=== PATIENT | male | born 1985 | race Hispanic/Latino ===

== ENCOUNTER 2017-10-25 09:56 | Emergency (ER) | payer SELFPAY ==
[2017-10-25] MEDS ORDERED: IBUPROFEN 600 MG TABLET ONE (10:05)
[2017-10-25] MEDS ORDERED: ACETAMINOPHEN 325 MG TAB ONE (10:10)
[2017-10-25] MEDS ORDERED: MAG HYDROX/AL HYDROX/SIMETH ES 30 ML SUSP UDCUP ONE (10:19)
[2017-10-25] MEDS ORDERED: KETOROLAC TROMETHAMINE 30MG/ML ONE (10:19)
[2017-10-25] MEDS ORDERED: LIDOCAINE HCL 2% VISCOUS 15 ML UDCUP ONE (10:19)
[2017-10-25] MEDS ORDERED: PENICILLIN G BENZATHINE LA 1.2 MILUNITS/2 ML SYG ONE (10:21)
[2017-10-25] MEDS ORDERED: DEXAMETHASONE SOD PHOSPHATE 10MG/ML 1ML VIAL ONE (10:22)
== END 2017-10-25 11:14 | disposition home or self-care (01) ==
LOC: EDH 09:56
DX: J02.9 Acute pharyngitis, unspecified (principal); R50.9 Fever, unspecified
CPT/HCPCS: 87804 ×2; 96372 ×2; 99284; J0561; J1100; J1885

== ENCOUNTER 2018-06-17 11:50 | Emergency (ER) | payer OTHER, SELFPAY | END 2018-06-17 12:14 | disposition left against medical advice (07) | LOC: EDH 11:50 | DX: Z53.21 Procedure and treatment not carried out due to patient leaving prior to being seen by health care provider (principal) ==

== ENCOUNTER 2020-03-28 17:01 | Emergency (ER) | payer OTHER ==
[2020-03-28] MEDS ORDERED: KETOROLAC TROMETHAMINE 30MG/ML ONE (17:22)
== END 2020-03-28 19:38 | disposition home or self-care (01) ==
LOC: EDH 17:01
DX: S62.624A Displaced fracture of middle phalanx of right ring finger, initial encounter for closed fracture (principal); Z72.0 Tobacco use; W18.39XA Other fall on same level, initial encounter; Y93.89 Activity, other specified; Y92.89 Other specified places as the place of occurrence of the external cause; Y99.8 Other external cause status
CPT/HCPCS: 29130; 73130; 96372; 99283; J1885

== ENCOUNTER 2025-04-05 19:55 | Emergency (ER) | payer SELFPAY ==
[~2025-04-05] VITALS: Ht 177.8 cm; Wt 61.2 kg
--- NOTE | 2025-04-05 20:17 | ERN ---
ED Note History of Present Illness Stated Complaint: FALL, LEFT ELBOW PAIN Chief Complaint: Elbow Problem Time Seen by MD: 20:00 Time Seen by Midlevel: 20:00 Dictation: The patient is a 39-year-old male with no past medical history who presents to the emergency department with complaints of left elbow pain after he had a fall off his skateboard about a week and a half ago. Patient reports pain is radiating down his arm and into his shoulder. Denies any other injuries from the fall. Allergies: Coded Allergies: No Known Allergies (Unverified Allergy, Unknown, 04/05/25) Past Medical History Past Medical History: No Pertinent History Surgical History: None RN Note Reviewed/Agreed w/PFSH: Yes Review of System Dictation Constitutional: Negative for fever,chills, and weight loss Eyes: Negative for injury, pain,redness, and discharge ENT: Negative for injury,pain or swelling Cardiovascular: Negative for chest pain, palpitations, and edema Respiratory: Negative for shortness of breath, cough, and wheezing, Abdomen/GI: Negative for abdominal pain, nausea, vomiting, diarrhea, and constipation Back: Negative for injury and pain : Negative for injury, bleeding and discharge MS/Extremity: Positive for left shoulder pain Skin: Negative for rash, and discoloration Neuro: Negative for headache, weakness, numbness, tingling, and seizure Psych: Negative for suicide ideation, homicidal ideation, and hallucinations Initial Vital Sign VS Vital Signs Date Time Temp Pulse Resp B/P (MAP) Pulse Ox O2 Delivery O2 Flow Rate FiO2 04/05/25 19:57 98.1 102 18 143/86 98 Room Air 04/05/25 21:55 0 21 Physical Exam Dictation Vital Signs reviewed General Appearance: Alert, oriented x 3, no acute distress, well developed, nourished. Head and Face: non-traumatic. Eyes: PERRL, pink conjunctivas, eyelid no trauma, anterior chamber with arcus senilis. Ears: Pinnas intact and no signs of trauma or erythema ear canals clear and no discharge TM no erythema Nose: No discharge, no bleeding. Oropharynx: Mouth normal, tongue pink. pharynx clear,no erythema, tonsils no exudates, no abscesses noted, mucous membrane moist Neck: Supple, non-tender, no thyromegaly, no masses, no JVD, no bruits Breast:Deferred Chest:No tenderness, no crepitus, no paradoxical movement, no retractions Lungs:Clear, well-ventilated, symmetric, no rales, no wheezing, no rhonchi, no stridor, good breath sounds bilaterally Heart: Regular rate, regular rhythm, no murmur, no gallops Vascular: no peripheral edema, radial pulse 3 + Abdomen: Soft, positive bowel sounds, nondistended, no guarding, nontender, no rebound, no masses no hepatomegaly, no splenomegaly, no Johnson's sign, no hernias. Rectal: Deferred Genital: Deferred Neurological: Normal speech, motor function intact, sensory function intact Musculoskeletal: Neck nontender, full range of motion, back nontender, full range of motion, Extremities: nontender, full range of motion , tenderness to left elbow, full range of motion Skin: Color pink, dry, no turgor, no rash, no lacerations, no abrasions, no contusions. Lymphatic: Deferred Results (Laboratory/Radiology) Laboratory/Radiology REASON: pain ORDERING PHYSICIAN: KESHAV MIN CENTRIFUGAL SEPARATOR PROCEDURE: ELB3VW LT - ELBOW COMP 3+VWS LT EXAM: CR left elbow, 3 View. CLINICAL HISTORY: pain COMPARISON: None provided. FINDINGS: BONES: No acute fracture or aggressive appearing osseous lesion. JOINTS: The joint spaces appear within normal limits. No dislocation. No radiographic evidence of a joint effusion. SOFT TISSUES: The soft tissues are unremarkable. IMPRESSION: No acute osseous abnormality. /[place] Labs Reviewed?: Yes ED Course ED Course Orders Procedure Category Date Status Time Elbow Comp 3+Vws Lt RAD 04/05/25 Resulted 20:14 Ibuprofen 600 Mg PHA 04/05/25 Complete Tablet (Motrin) 20:30 Apply Xochilt Wrap (Er) CPOE 04/05/25 Transmitted 21:32 Sling JEWELS 04/05/25 In Process 21:32 Current Medications Medications (Trade) Dose Ordered Sig/Douglas Route PRN Reason Start Time Stop Time Status Last Admin Dose Admin Ibuprofen (moTRIN) 600 mg ONCE ONCE PO 04/05/25 20:30 04/05/25 20:31 DC 04/05/25 20:51 Vital Signs Date Time Temp Pulse Resp B/P (MAP) Pulse Ox O2 Delivery O2 Flow Rate FiO2 04/05/25 21:55 98.2 72 18 138/73 99 Room Air* 0 21 04/05/25 19:57 98.1 102 18 143/86 98 Room Air Medical Decision Making MDM The patient is a 39-year-old male with no past medical history who presents to the emergency department with complaints of left elbow pain after he had a fall off his skateboard about a week and a half ago. Patient reports pain is radiating down his arm and into his shoulder. Denies any other injuries from the fall. X-ray Showed no fractures. Patient is neurovascularly intact. On physical exam patient is in no acute distress, nontoxic appearance. Patient will be discharged to follow up with PCP. Differential diagnosis: Elbow dislocation, elbow contusion, elbow sprain Need for hospitalization: Patient does not meet criteria for hospitalization. There are no social concerns with this patient. DX & DISP Disposition: Discharge Departure Impression: Primary Impression: Strain of left elbow Condition: Stable Scripts Meloxicam (Meloxicam) 15 Mg Tablet 1 TAB PO DAILY for 10 Days, #10 TAB 0 Refills Prov: KESHAV MIN 04/05/25 Additional Instructions: X-ray did not show any fractures. Please follow up with the primary doctor in 1-2 days. If anything worsens please return to ER. FOLLOW-UP WITH PRIMARY CARE PROVIDER IN 1 TO 2 DAYS. TAKE MEDICATIONS DIRECTED HERE IN THE EMERGENCY ROOM. OKAY TO CONTINUE HOME MEDICATIONS UNLESS OTHERWISE DISCUSSED DURING YOUR VISIT IN THE EMERGENCY ROOM TODAY. RETURN TO YOUR NEAREST EMERGENCY ROOM IF SYMPTOMS WORSEN OR IF THERE IS NO IMPROVEMENT. CALL 911 IF YOU NEED IMMEDIATE ASSISTANCE. TAKE TYLENOL [id number] NEEDED AND IF NO CONTRAINDICATIONS ARE PRESENT. INCREASE ORAL HYDRATION. A WOUND CULTURE OR URINE CULTURE WAS ORDERED HERE IN THE EMERGENCY ROOM DEPARTMENT PLEASE FOLLOW-UP WITH PRIMARY CARE PROVIDER AND ADVISE THEM TO GET REPEAT PORTS FROM OUR FACILITY. IF YOU HAD ANY XOCHILT WRAP/SPLINTS THAT WERE APPLIED HERE, PLEASE DO NOT REMOVE THEM UNTIL YOU SEE YOUR PRIMARY CARE OR SPECIALTY. Referrals: SELF,REFERRAL (PCP) CLAUDIA QUINTANA MD Time of Disposition: 22:01 I have reviewed the case, and I agree with, Diagnosis and Plan KESHAV MIN Apr 05, 2025 20:17
--- NOTE | 2025-04-05 21:26 | HMCIMG ---
EXAM: CR left elbow, 3 View. CLINICAL HISTORY: pain COMPARISON: None provided. FINDINGS: BONES: No acute fracture or aggressive appearing osseous lesion. JOINTS: The joint spaces appear within normal limits. No dislocation. No radiographic evidence of a joint effusion. SOFT TISSUES: The soft tissues are unremarkable. IMPRESSION: No acute osseous abnormality. /[place]
--- NOTE | 2025-04-05 21:48 | NUR ---
XOCHILT BANDAGE APPLIED TO LEFT ELBOW, CAP REFILL LESS THAN 2 SECONDS. SKIN COLOR WNL. SLING APPLIED
[2025-04-05 21:55] VITALS: BP 138/73; PULSE 72; RESP 18; TEMP 98.2; O2SAT 99
[2025-04-05] MEDS ORDERED: MELO-108 PO (22:02)
--- NOTE | 2025-04-05 22:06 | NUR ---
CALLED NO ANSWER, NOT IN LOBBY, NOR IS FRIEND
--- NOTE | 2025-04-05 22:10 | NUR ---
PT CALLED, NOT IN LOBBY OR RESTROOM OR MAIN ER
--- NOTE | 2025-04-05 22:12 | NUR ---
PT CALLED, NO ANSWER. LEFT WITHOUT DISCHARGE INSTRUCTIONS OR MEDICATION EDUCATION
== END 2025-04-05 22:13 | disposition left against medical advice (07) ==
LOC: EDH 19:55
DX: S46.812A Strain of other muscles, fascia and tendons at shoulder and upper arm level, left arm, initial encounter (principal); V00.131A Fall from skateboard, initial encounter; Y93.51 Activity, roller skating (inline) and skateboarding; Y92.89 Other specified places as the place of occurrence of the external cause; Y99.8 Other external cause status
CPT/HCPCS: 73080; 99283